=== PATIENT | female | born 1980 | race Caucasian/White ===

== ENCOUNTER → 2016-02-20 | Outpatient (CLI) | payer OTHER ==
--- NOTE | 2016-02-20 15:14 | US ---
February 20, [address] Pollard, Thank you for allowing us to see your patient regarding prior previable twin loss, cerclage in place after shortened cervix. As you know she is a 35 year-old 2, para 0010. Her due date is 07/11 which is based on IVF. Her current gestational age based on this dating is 19 weeks 5 days. She reports irregular painless tightening. Number of fetuses: 1 Placental location: posterior Cord Insertion: Central presentation: vertex Cervix: 2.5.3.0 cm by TVUS with cerclage in place MVP: 4.3 cm The adnexa were evaluated. No pathology was seen. Right ovary not seen Left ovary not seen Measurements: Biparietal diameter: 51 mm 21 weeks, 3 days Head circumference: 187 mm 21 weeks, 1 days Abdominal circumference: 182 mm 20 weeks, 3 days Femur length: 30 mm 19 weeks, 5 days Humerus length: 30 mm 19 weeks, 5 days Transcerebellar diameter: 21 mm 20 weeks, 0 days Average ultrasound age: 20 weeks, 6 days Estimated weight: 324 gm weight percentile: 78 % ANATOMY Upper extremities: Normal Lower extremities: Normal Supratentorial brain: Suboptimal CSP Lateral ventricle: 6.0 mm Posterior fossa: Normal Cisterna Magna: 5.7 mm Spine: Normal Nuchal fold: 3.3 mm Face: Normal profile and alveolar ridge. Suboptimal nose lips and coronal face Heart: Normal rate, rhythm, axis, 4 chamber view, LVOT, RVOT, IVS Stomach: Normal Diaphragm Normal Umbilical cord insertion: Normal Right kidney: Normal Left kidney: Normal Bladder: Normal Number of cord vessels: Three. TVUS: CL 2.5 -3.0 cm no previa, no funnel. Cerclage in place Impression: This is a 35 year-old, 2, para 0010 at 19 weeks, 5 days gestation. 1. SIUP with biometry cw ga of 19 weeks. NL MVP. No anatomic abnormalities noted. Suboptimal Nose/Li p and Coronal face secondary to position. 2. Cerclage in place with reassuring CL today. Reviewed precautions and given the tightening , I rec ommended repeat Cervix check 1 week. Thank you for allowing me to see your patient. Approximately 15 minutes was spent with the patient a nd 15 was spent discussing her issues. [place]ia Cano MD Diagnosis Division of Maternal Medicine Department of Obstetrics and Gynecology [facility]
--- NOTE | 2016-02-20 18:22 | US ---
Detailed Obstetric Ultrasound February 20, 2016 Indication: IVF. Advanced maternal age. The estimated gestational age is 19 weeks and 5 days yielding an EDC of July 11, 2016. Comparison: February 13, 2016. Findings Number: One Presentation: Vertex Placental location: Posterior Cervix: 2.5 to 3 cm with a cerclage in place Maximum vertical pocket: 4.3 cm heart rate: 160 bpm Biometry: Biparietal diameter: 51 mm 21 weeks, 3 days Head circumference: 187 mm 21 weeks, 1 day Abdominal circumference: 151 mm 20 weeks, 3 days Femur length: 32 mm 20 weeks, 0 days Humerus length: 29 mm 19 weeks, 5 days Transcerebellar diameter: 21 mm 20 weeks, 0 days HC/AC: 1.23 (1.09 - 1.26) FL/BPD: 63% FL/AC: 21% Average ultrasound age: 20 weeks, 6 days EDC based on today's average ultrasound age: July 03, 2016. Estimated weight is 345 grams +/- 50 grams. The estimated weight is at the 70th percentil e based on previous dating. Anatomy Survey: Supratentorial brain: Normal Posterior fossa: Normal Spine: Normal Nuchal fold: Normal 0.3 mm Nose and lips: Normal Facial profile: Normal Heart: Four-chamber heart. Intact interventricular septum. Cardiac outflow tracts: Normal Stomach: Normal Umbilical cord insertion: Normal Kidneys: Normal, no pyelectasis Bladder: Normal Number of cord vessels: Three Upper extremities: Normal Lower extremities: Normal. No clubbing. Impressions 1. Living sampson in vertex presentation. Size concordant with dates. The estimated ges tational age by biometry is 20 weeks and 6 days yielding an EDC of July 03, 2016. The estimated gestational age by LMP is 19 weeks and 5 days. 2. Unremarkable anatomy. No anomalies detected. 3. Cerclage intact with the cervix varying between 2.5 and 3 cm. Please see separate report for full maternal medicine consultation.
== END ==
LOC: FIMAGING 13:37
PROVIDERS: ATTEND Obstetrics & Gynecology
DX: O26.872 Cervical shortening, second trimester (principal); O09.812 Supervision of pregnancy resulting from assisted reproductive technology, second trimester; O09.292 Supervision of pregnancy with other poor reproductive or obstetric history, second trimester; O09.522 Supervision of elderly multigravida, second trimester; Z3A.19 19 weeks gestation of pregnancy

== ENCOUNTER → 2016-05-30 | Outpatient (CLI) | payer OTHER | LOC: FIMAGING 08:38 | PROVIDERS: ATTEND Obstetrics & Gynecology | DX: O09.813 Supervision of pregnancy resulting from assisted reproductive technology, third trimester (principal); Z3A.34 34 weeks gestation of pregnancy ==

== ENCOUNTER 2016-06-15 12:01 | Observation (INO) | payer OTHER ==
[2016-06-15] MEDS ORDERED: BETAMETHASONE IM SYRINGE IM ONE (12:30)
== END 2016-06-15 13:25 | disposition home or self-care (01) ==
LOC: FLD 12:01
PROVIDERS: ADMIT Obstetrics & Gynecology; ATTEND Obstetrics & Gynecology
DX: O09.523 Supervision of elderly multigravida, third trimester (principal); Z3A.36 36 weeks gestation of pregnancy
CPT/HCPCS: 59025; G0378; J0702

== ENCOUNTER 2016-07-01 23:27 | Inpatient (IN) | payer OTHER ==
[2016-07-01] MEDS ORDERED: OLIVE OIL 118 ML BTL ONE (23:40)
[2016-07-01] MEDS ORDERED: LIDOCAINE 1% 30 ML SDV ONE (23:40)
[2016-07-01] MEDS ORDERED: MISOPROSTOL 200 MCG TAB ONE (23:41)
[2016-07-01] MEDS ORDERED: OXYTOCIN 10 UNIT/ML VIAL ONE (23:41)
[2016-07-01] MEDS ORDERED: AMMONIA AROMATIC 1 EACH AMP IH ONE (23:41)
[2016-07-02] MEDS ORDERED: OXYTOCIN 10 UNIT/ML VIAL ONE (00:46)
[2016-07-02] MEDS ORDERED: HYDROCORTISONE 0.5% CREAM TP PRN (00:52)
[2016-07-02] MEDS ORDERED: SIMETHICONE 80 MG TAB CHEW PO PRN (00:52)
[2016-07-02] MEDS ORDERED: HYDROCODONE/APAP 5/325 TAB PO PRN (00:52)
[2016-07-02] MEDS ORDERED: MISOPROSTOL 200 MCG TAB PR ONE (00:55)
[2016-07-02] MEDS ORDERED: METHYLERGONOVINE MAL 0.2 MG/ML INJ IM ONE (00:55)
--- NOTE | 2016-07-02 00:55 | OBPROC ---
- Labor and Delivery Onset of Contractions Date: 07/02/16 Onset of Contractions Time: 22:45 Onset of Contractions Type: Spontaneous Rupture of Membranes Date: 07/01/16 Rupture of Membranes Time: 23:00 Rupture of Membranes Type: Spontaneous Amniotic Fluid Color: Meconium Stained-Light Dilation Complete Time: 23:30 Delivery Type: Spontaneous Placenta Delivery Date: 07/02/16 Episiotomy/Laceration: 2nd Degree Repair: 3-0, Vicryl EBL: 500 ml Complications: Post Hemorrhage - Medications Anesthesia: Local (Specify) - [place] Info A Delivery Date: 07/02/16 Delivery Time: 00:17 Sex of Infant: Female Score (1 Min): 8 Score (5 Min): 9 (mild PPH requiring methergine and cytotec)
[2016-07-02] MEDS ORDERED: OXYTOCIN/RINGERS LACTATE 500 ML IV SCH (01:00)
[2016-07-02] MEDS: IBUPROFEN 600 MG TAB PO PRN ×4 (01:48→20:42)
[2016-07-02 03:41] LABS: % IMMATURE GRANULYOCYTES 0.5 % (0.0-1.1); ADD DIFF? NO; ADD MORPH? NO; ADD SCAN? NO; ATYPICAL LYMPHOCYTE FLAG 0 (0-99); FRAGMENT RBC FLAG 0 (0-99); HEMATOCRIT 38.3 % (38.0-47.0); HEMOGLOBIN 13.7 g/dL (12.6-16.3); LEFT SHIFT FLG 10 (0-99); LIPEMIA HEMOLYSIS FLAG 90 (0-99); MEAN CELL HEMOGLOBIN 32.9 pg (27.9-34.1); MEAN CELL HEMOGLOBIN CONCENTR. 35.8 g/dL (32.4-36.7); MEAN CELL VOLUME 92.1 fL (81.5-99.8); MEAN PLATELET VOLUME 11.1 fL (8.7-11.7); PLATELET CLUMPS FLAG 0 (0-99); PLATELET COUNT 182 10^3/uL (150-400); RED BLOOD CELL COUNT 4.16 10^6/uL (4.18-5.33); RED CELL DISTRIBUTION WIDTH 12.3 % (11.5-15.2)
[2016-07-02] MEDS: DOCUSATE SODIUM 100 MG CAP PO PRN ×2 (08:13→20:42)
--- NOTE | 2016-07-02 08:16 | SOAPPROG ---
SOAP Progress Note Assessment/Plan: Assessment: 36 y.o. female s/p with mild PPH PPD #0. Recovering well with good pain control. . Plan: Routine orders. consult. Begin Iron QD. 07/02/16 08:13 Subjective: Reports feeling well with good pain control and minimal vaginal bleeding. Eating and drinking well without nausea or vomiting. with assistance. Has been out of bed and ambulating without vertigo. Appropriate mood with good support system. Objective: Vital Signs Temp Pulse Resp BP Pulse Ox 36.8 C 72 16 119/74 96 07/02/16 04:00 07/02/16 04:00 07/02/16 04:00 07/02/16 04:00 07/02/16 04:00 Laboratory Results 07/02/16 06:00 07/01/16 07/02/16 07/03/16 05:59 05:59 05:59 Output Total 500 Balance -500 - Time Spent With Patient Time Spent With Patient: 20 minutes - Pending Discharge Pending Discharge Within 48 Hours: Yes Pending Discharge Date: 07/04/16 Pending Discharge Time: 11:00 Physical Exam - Physical Exam General Appearance: WD/WN, alert, no apparent distress EENT: normal ENT inspection Neck: non-tender, full range of motion, normal inspection Respiratory: lungs clear, normal breath sounds Cardiac/Chest: regular rate, rhythm Abdomen: non-tender, soft Pelvic Exam: deferred Rectal: deferred Back: Normal inspection Skin: normal color, warm/dry Lymphatic: no adenopathy Extremities: normal range of motion, non-tender, normal inspection Neuro/Psych: alert, normal mood/affect, oriented x 3 ICD10 Worksheet Patient Problems: Problems Problem Status Onset Active labor Acute premature rupture of membranes (PPROM) delivered, current hospitalization Acute
[2016-07-02] MEDS: IRON POLYSAC/IRON HEME 28 MG TAB PO SCH (14:14)
[2016-07-02 21:22] VITALS: RESP 16
[2016-07-03] MEDS: IBUPROFEN 600 MG TAB PO PRN ×2 (03:01→10:42)
--- NOTE | 2016-07-03 08:45 | OBGCSDC ---
General Delivery Information - General Info : 2 Para: 2 Delivery Date: 07/02/16 Delivery Physician/CNM: Kaylin Pollard Labs: Patient ABO/Rh O NEGATIVE 07/02/16 03:05 Hct 35.5 % (38.0-47.0) L 07/02/16 06:00 - Info Infant A Sex of Infant: Female Score (1 Min): 8 Score (5 Min): 9 (mild PPH requiring methergine and cytotec) Vaginal - Diagnosis Labor: Spontaneous Rupture of Membranes Type: Spontaneous Repair: 3-0, Vicryl Complications: Post Hemorrhage - Operations/Procedures Delivery Type: Spontaneous - Hospital Course Antepartum: Cervical incompetence s/p cerclage. AMA Intrapartum: Spontaneous . PPH 500 ml : Routine care - Delivery EBL: 500 ml Anesthesia: Local (Specify) Discharge Information - Discharge Information Discharge Medications: Iron Condition: Good Instruction/Follow Up: Six Weeks Discharge Physician/CNM: Ekaterina Medrano Discharge Date: 07/03/16 Dictated: No
[2016-07-03] MEDS: IRON POLYSAC/IRON HEME 28 MG TAB PO SCH (10:42)
[2016-07-03 11:49] VITALS: BP 103/67; PULSE 87; TEMP 98; O2SAT 93
== END 2016-07-03 15:00 | disposition home or self-care (01) | DRG 774 ==
LOC: FLD 23:27 → FOB 07-02 03:24
PROVIDERS: ADMIT Obstetrics & Gynecology; ATTEND Obstetrics & Gynecology
DX: O34.33 Maternal care for cervical incompetence, third trimester (principal); O70.1 Second degree perineal laceration during delivery; O72.1 Other immediate postpartum hemorrhage; O77.0 Labor and delivery complicated by meconium in amniotic fluid; O09.523 Supervision of elderly multigravida, third trimester; O09.813 Supervision of pregnancy resulting from assisted reproductive technology, third trimester; Z3A.38 38 weeks gestation of pregnancy; Z37.0 Single live birth
CPT/HCPCS: J2210